=== PATIENT | female | born 1990 | race Caucasian/White ===

== ENCOUNTER 2016-05-18 18:19 | Emergency (ER) | payer OTHER ==
[~2016-05-18 18:19] MED LIST: BACTRIM DS TABL1 TA1 PO; BACTRIM DS TABL1 TA2 PO; FAMOTIDINE PO; FLEXERIL10 MG PO; IBUPROFEN PO; MOTRIN400 MG PO; NABUMETONE PO; NAPROSYN500 MG PO; NEXIUM PO; NO MEDICATIONS; PHENERGAN PO; PREVACID PO; PRILOSEC PO; PROTONIX PO; REGLAN PO; TOBREX 0.3% OS; ULTRAM PO; VICODIN PO; [UNRECOGNIZED DRUG - OTHER] OS
[2016-05-23 16:08] LABS: CHLAMYDIA TRACH Detected (Not Detected); N GONOR Not Detected (Not Detected)
== END 2016-05-18 19:02 | disposition home or self-care (01) ==
LOC: SED 18:19
PROVIDERS: Physician Assistant Medical
DX: N76.0 Acute vaginitis (principal); F17.210 Nicotine dependence, cigarettes, uncomplicated
CPT/HCPCS: 87210; 87491; 87591; 87808; 87905; 96372; 99284; J0696

== ENCOUNTER 2016-06-27 17:19 | Emergency (ER) | payer OTHER ==
[2016-06-27 18:22] LABS: MICRO INDICATED? YES; URINE APPEARANCE SL HAZY; URINE BILIRUBIN NEG (NEG); URINE BLOOD 3+ (NEG); URINE COLOR YELLOW; URINE GLUCOSE NORM (NEG); URINE KETONE NEG (NEG); URINE LEUKOCYTE ESTERASE 1+ (NEG); URINE NITRATE POS (NEG); URINE PH 6.5 (5-8); URINE PROTEIN NEG (NEG); URINE SOURCE CLEAN CATCH; URINE SPECIFIC GRAVITY 1.005 (1.003-1.035); URINE UROBILINOGEN 0.2 MG/DL (NEG)
[2016-06-27 18:29] LABS: CULTURE INDICATED? YES; URINE BACTERIA 1+ (NEG); URINE SQUAMOUS EPITHELIAL CELL OCCAS /[HPF]
[2016-06-30 15:38] LABS: CHLAMYDIA TRACH Detected (Not Detected); N GONOR Not Detected (Not Detected)
== END 2016-06-27 18:48 | disposition home or self-care (01) ==
LOC: SED 17:19
PROVIDERS: Nurse Practitioner
DX: N30.90 Cystitis, unspecified without hematuria (principal); K21.9 Gastro-esophageal reflux disease without esophagitis; F17.210 Nicotine dependence, cigarettes, uncomplicated
CPT/HCPCS: 81003; 87086; 87491; 87591; 99283

== ENCOUNTER 2016-07-14 10:52 | Emergency (ER) | payer OTHER | END 2016-07-14 11:05 | disposition home or self-care (01) | LOC: SED 10:52 | DX: K05.219 Aggressive periodontitis, localized, unspecified severity (principal); F17.200 Nicotine dependence, unspecified, uncomplicated; Z98.890 Other specified postprocedural states | CPT/HCPCS: 99282 ==